=== PATIENT | female | born 2000 | race African-American/Black ===

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

== ENCOUNTER 2019-05-05 11:30 | Emergency (ER) | payer OTHER, SELFPAY | END 2019-05-05 12:27 | disposition home or self-care (01) | LOC: ERS 11:30 | DX: H00.015 Hordeolum externum left lower eyelid (principal) | CPT/HCPCS: 99281 ==